=== PATIENT | female | born 1990 | race Caucasian/White ===

== ENCOUNTER 2023-10-25 06:48 | Emergency (ER) | payer OTHER, SELFPAY ==
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
[2023-10-25 06:53] VITALS: BP 115/80; PULSE 92; RESP 20; TEMP 36.7; O2SAT 97; BMI 22.1
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
[2023-10-25] MEDS: Cyclobenzaprine HCl 10 MG TABLET PO (09:16)
[2023-10-25 09:39] VITALS: BP 107/74; PULSE 79; RESP 18; TEMP 36.5; O2SAT 100
[2023-10-25 10:32] VITALS: BP 107/74; PULSE 79; RESP 18; TEMP 36.5; O2SAT 100
== END 2023-10-25 10:34 | disposition home or self-care (01) ==
PROVIDERS: Emergency Provider Emergency Medicine
DX: M54.2 Cervicalgia (principal); M62.838 Other muscle spasm; R68.84 Jaw pain; R51.9 Headache, unspecified
CPT/HCPCS: 70450; 70486; 72125; 99284